=== PATIENT | female | born 1980 | race Caucasian/White ===

== ENCOUNTER → 2019-05-05 22:13 | Outpatient (CLI) | payer MEDICAID, SELFPAY ==
[2019-05-05 22:37] LABS: Absolute Neutrophil Count 5.4 X10^3/uL (2.0-7.7); Basophil# 0.05 X10^3/uL; Basophil% 0.5 % (0-1); Eosinophil# 0.09 X10^3/uL; Eosinophils% 0.9 % (0-5); Hematocrit 43.2 % (37-47); Hemoglobin 14.2 g/dL (12.0-15.0); Mean Corp Hgb Conc 32.9 g/dL (32-36); Mean Corpuscular Hgb 32.1 pg (27.0-32.0); Mean Corpuscular Volume 97.7 fL (81-99); Mean Platelet Vol. 11.2 fl (6.2-12.0); NRBC Flagged by Analyzer 0 % (0-5); Neutrophil # 5.44 X10^3/uL (2.7-7.7); Neutrophil % 54.4 % (47-70); Platelet Count 207 K/mm3 (150-450); RBC Distribution Width CV 12.7 % (11.6-14.6); RBC Distribution Width SD 45.5 fl (35.1-43.9); Red Blood Count 4.42 M/mm3 (4.2-5.4)
[2019-05-05 22:50] LABS: AST(SGOT) 13 U/L (15-37); Alanine Aminotransfer ALT/SGPT 22 U/L (13-56); Albumin, Serum 3.5 g/dL (3.2-5.0); Alkaline Phosphatase 41 U/L (45-117); Anion Gap 6 (5-15); BUN 18 mg/dL (7-18); BUN/Creat Ratio 24.3 RATIO (10-20); Calcium,Total 8.5 mg/dL (8.5-10.1); Chloride 110 mmol/L (98-107); Cholesterol 204 mg/dL (200); Creatinine, Serum 0.74 mg/dL (0.55-1.02); EST Glomerular Filtration Rate 92 mL/min (>60); Est Glom Filt Rate - Afr Amer 111 mL/min (>60); Globulin 3.6 g/dL (2.2-4.2); Glucose 77 mg/dL (74-106); High Density Lipoprotein 51 mg/dL; Potassium 4.1 mmol/L (3.5-5.1); Protein, Total 7.1 g/dL (6.4-8.2); Sodium Level 140 mmol/L (136-145); Triglycerides 76 mg/dL; Very Low Density Lipoprotein 15 mg/dL (5-40)
== END ==
PROVIDERS: Family Provider Nurse Practitioner; PCP Nurse Practitioner; Referring Provider Nurse Practitioner; Visit Provider Nurse Practitioner
DX: Z00.00 Encounter for general adult medical examination without abnormal findings (principal)
CPT/HCPCS: 80053; 80061; 85025

== ENCOUNTER → 2020-08-30 | Outpatient (CLI) | payer MEDICARE, MEDICAID, SELFPAY ==
[2014-04-01 11:28] VITALS: BMI 25.8
[2020-08-30 23:13] LABS: Absolute Neutrophil Count 4.4 X10^3/uL (2.0-7.7); Basophil# 0.05 X10^3/uL; Basophil% 0.6 % (0-1); Eosinophil# 0.06 X10^3/uL; Eosinophils% 0.7 % (0-5); Hematocrit 46.3 % (37-47); Hemoglobin 14.2 g/dL (12.0-15.0); Lymphocyte % 39.2 % (19-41); Mean Corp Hgb Conc 30.7 g/dL (32-36); Mean Corpuscular Hgb 31.1 pg (27.0-32.0); Mean Corpuscular Volume 101.5 fL (81-99); Mean Platelet Vol. 11.3 fl (6.2-12.0); Monocyte# 0.63 X10^3/uL; Monocyte% 7.5 % (0-10); NRBC Flagged by Analyzer 0 % (0-5); Neutrophil # 4.37 X10^3/uL (2.7-7.7); Neutrophil % 51.9 % (47-70); Platelet Count 194 K/mm3 (150-450); RBC Distribution Width CV 12.4 % (11.6-14.6); Red Blood Count 4.56 M/mm3 (4.2-5.4); White Blood Count 8.4 K/mm3 (4.4-11.0)
[2020-08-30 23:19] LABS: ALB/GLOB Ratio 1.1 RATIO (0.9-2.4); AST(SGOT) 13 U/L (15-37); Alanine Aminotransfer ALT/SGPT 25 U/L (13-56); Albumin, Serum 3.8 g/dL (3.2-5.0); Alkaline Phosphatase 52 U/L (45-117); Anion Gap 7 (5-15); BUN 19 mg/dL (7-18); BUN/Creat Ratio 17.8 RATIO (10-20); Calcium,Total 9.1 mg/dL (8.5-10.1); Chloride 110 mmol/L (98-107); Creatinine, Serum 1.07 mg/dL (0.55-1.02); EST Glomerular Filtration Rate 60 mL/min (>60); Est Glom Filt Rate - Afr Amer 72 mL/min (>60); Globulin 3.6 g/dL (2.2-4.2); Glucose 103 mg/dL (74-106); Potassium 4.6 mmol/L (3.5-5.1); Protein, Total 7.4 g/dL (6.4-8.2); Sodium Level 145 mmol/L (136-145)
[2020-09-03 06:15] LABS: Vitamin D 1,25-Dihydroxy 52.6 pg/mL (19.9-79.3)
== END | disposition home or self-care (01) ==
PROVIDERS: PCP Nurse Practitioner; Visit Provider Nurse Practitioner
DX: S06.9X9A Unspecified intracranial injury with loss of consciousness of unspecified duration, initial encounter (principal); X58.XXXA Exposure to other specified factors, initial encounter; Y93.9 Activity, unspecified; Y92.9 Unspecified place or not applicable; Y99.9 Unspecified external cause status; E55.9 Vitamin D deficiency, unspecified; F41.9 Anxiety disorder, unspecified
CPT/HCPCS: 80053; 82652; 85025

== ENCOUNTER → 2023-10-16 | Outpatient (CLI) | payer MEDICARE, MEDICAID, SELFPAY ==
--- OUTSIDE RECORDS SUMMARY | 2023-10-16 20:38 | XMS RPT_ITS | CCD ---
Author Name Unknown Address [address] [place] [address] Organization [facility] Care Team Providers Care Solid Fiber Paster Operator Name Role Phone Kristy Buchanan Primary Care Provider [phone] Andrés Hinds MD Primary Care Provider Berto WAN, Andrés Mathew Primary Care Provider ANDRÉS HINDS Attending Unavailab ANDRÉS Montesinos Primary Care UnavailANDRÉS Clark Attending Unavailab KRISTY Ramírez Primary Care Unavailable KRISTY KANG Attending Unavailable KRISTY KANG Admitting Unavailable KRISTY LANGSTON Referring Unavailable ANDRÉS HINDS Primary Care UnavailEKATERINA Edgar Consulting Unavailable KRISTY LANGSTON Attending Unavailable ANDRÉS HINDS Primary Care Unavailab flynn Allergies Allergy Classification Reported Allergen(s) Allergy Type Date of Onset Reaction(s) Facility (20 sources) Amoxicillin; Translations: [AMOXICILLIN] Drug Allergy 10-10-2019 Unknown [facility] (20 sources) lamoTRIgine; Translations: [LAMOTRIGINE] Drug Allergy 06-26-2022 Unknown [facility] Medications Current Medications Medication Drug Class(es) Dates Sig (Normalized) Sig (Original) dextromethorphan hydrobromide 15 mg oral capsule (2 sources) Uncompetitive [id number] te Receptor Antagonist, Sigma-1 Agonist Start: 06-25-2023 End: 06-24-2024 take 3 capsules by mouth twice daily Dextromethorphan HBr (TUSSIN COUGH) 15 mg cap Take 3 capsules by mouth two times a day. 540 capsule 3 06/25/2023 06/24/2024 Active Completed/Discontinued Medications Medication Drug Class(es) Dates Sig (Normalized) Sig (Original) 24 hr amphetamine aspartate 7.5 mg / amphetamine sulfate 7.5 mg / dextroamphetamine saccharate 7.5 mg / dextroamphetamine sulfate 7.5 mg extended release oral capsule (20 sources) Central Nervous System Stimulant Start: 06-26-2022 End: 09-23-2023 take 1 capsule by mouth once daily amphetamine-dextro amphetamine XR (ADDERALL XR) 30 mg capsule Indications: Attention-deficit hyperactivity disorder, combined type Take 1 capsule by mouth once daily for 30 days. 30 capsule 0 06/25/2023 Active Problems Active Problems Problem Classification Problem Date Documented Date Episodic/Chronic Attention-deficit, conduct, and disruptive behavior disorders (20 sources) Attention deficit hyperactivity disorder, combined type; Translations: [Attention-deficit hyperactivity disorder, combined type] Onset: 04-13-2017 06-18-2022 Chronic Attention-deficit, conduct, and disruptive behavior disorders (1 source) Attention-deficit hyperactivity disorder, combined type; Translations: [Attention-deficit hyperactivity disorder, combined type] Onset: 06-18-2022 Chronic Bacterial infection; unspecified site (1 source) Bacteremia; Translations: [Bacteremia] Onset: 10-05-2023 Episodic Calculus of urinary tract (2 sources) Calculus of kidney; Translations: [Calculus of ureter] Onset: 10-04-2023 Episodic Delirium, dementia, and amnestic and other cognitive disorders (20 sources) Pseudobulbar affect; Translations: [Pseudobulbar affect] Onset: 11-04-2020 06-18-2022 Chronic Mood disorders (19 sources) Depressive disorder; Translations: [Depression] Onset: 12-19-2021 06-18-2022 Chronic Paralysis (20 sources) Spastic hemiplegia of dominant side; Translations: [Spastic hemiplegia affecting unspecified side] Onset: 06-26-2002 06-18-2022 Chronic Past or Other Problems Problem Classification Problem Date Documented Date Episodic/Chronic Intracranial injury (20 sources) Contusion of cerebral cortex; Translations: [Diffuse traumatic brain injury with loss of consciousness of unspecified duration, initial encounter] Onset: 06-09-2002 06-18-2022 Episodic Mycoses (19 sources) Onychomycosis; Translations: [Tinea unguium] Onset: 05-01-2018 06-18-2022 Episodic Other screening for suspected conditions (not mental disorders or infectious disease) (9 sources) Patient encounter status; Translations: [Encounter for screening for lipoid disorders] Onset: 06-25-2023 Episodic Results Test Name Value Interpretation Reference Range Facil ity Vital Signs Date Time Vital Sign Value Performing Clinician Melissa jones 06-25-2023 08:59-0400 Body height 167.6 cm Andrés Hinds MD Work Phone: [facility] 06-25-2023 08:59-0400 Body temperature 97.3 [degF] Andrés Hinds MD Work Phone: [facility] 06-25-2023 08:59-0400 Body weight 71.58 kg Andrés Hinds MD Work Phone: [facility] 06-25-2023 08:59-0400 Diastolic blood pressure 78 mm[Hg] Andrés Hinds MD Work Phone: [facility] 06-25-2023 08:59-0400 Heart rate 72 /min Andrés Hinds MD Work Phone: [facility] 06-25-2023 08:59-0400 Respiratory rate 18 /min Andrés Hinds MD Work Phone: [facility] 06-25-2023 08:59-0400 SaO2% (BldA) [Mass fraction] 97 % Andrés Hinds MD Work Phone: [facility] 06-25-2023 08:59-0400 Systolic blood pressure 118 mm[Hg] Andrés Hinds MD Work Phone: [facility] 12-25-2022 10:33-0400 Body height 165.1 cm Andrés Hinds MD Work Phone: [facility] 12-25-2022 10:33-0400 Body temperature 97.3 [degF] Andrés Hinds MD Work Phone: [facility] 12-25-2022 10:33-0400 Body weight 75.75 kg Andrés Hinds MD Work Phone: [facility] 12-25-2022 10:33-0400 Diastolic blood pressure 72 mm[Hg] Andrés Hinds MD Work Phone: [facility] 12-25-2022 10:33-0400 Heart rate 72 /min Andrés Hinds MD Work Phone: [facility] 12-25-2022 10:33-0400 Respiratory rate 18 /min Andrés Hinds MD Work Phone: [facility] 12-25-2022 10:33-0400 SaO2% (BldA) [Mass fraction] 99 % Andrés Hinds MD Work Phone: [facility] 12-25-2022 10:33-0400 Systolic blood pressure 110 mm[Hg] Andrés Hinds MD Work Phone: [facility] 06-26-2022 10:14-0400 Body height 165.1 cm Andrés Hinds MD Work Phone: [facility] 06-26-2022 10:14-0400 Body temperature 97.9 [degF] Andrés Hinds MD Work Phone: [facility] 06-26-2022 10:140400 Body weight 74.03 kg Andrés Hinds MD Work Phone: [facility] 06-26-2022 10:14-0400 Diastolic blood pressure 74 mm[Hg] Andrés Hinds MD Work Phone: [facility] 06-26-2022 10:14-0400 Heart rate 72 /min Andrés Hinds MD Work Phone: [facility] 06-26-2022 10:14-0400 Respiratory rate 18 /min Andrés Hinds MD Work Phone: [facility] 06-26-2022 10:14-0400 SaO2% (BldA) [Mass fraction] 98 % Andrés Hinds MD Work Phone: [facility] 06-26-2022 10:14-0400 Systolic blood pressure 118 mm[Hg] Andrés Hinds MD Work Phone: [facility] 12-19-2021 15:03-0400 Body temperature 97.5 [degF] Christopher Stetler DO Work Phone: [facility] 12-19-2021 15:03-0400 Body weight 71.44 kg Christopher Stetler DO Work Phone: [facility] 12-19-2021 15:03-0400 Diastolic blood pressure 69 mm[Hg] Christopher Stetler DO Work Phone: [facility] 12-19-2021 15:03-0400 Heart rate 62 /min Christopher Stetler DO Work Phone: [facility] 12-19-2021 15:03-0400 Respiratory rate 14 /min Christopher Stetler DO Work Phone: [facility] 12-19-2021 15:03-0400 Systolic blood pressure 121 mm[Hg] [facility] Work [facility]: [facility] Encounters Encounter Date Encounter Type Care Provider Facility Start: 10-05-2023 End: 10-07-2023 Evaluation and management of inpatient HARVEYERNESTO KANG Facility:[facility] Start: 10-04-2023 End: 10-05-2023 [facility] Start: 08-14-2023 Patient encounter procedure [facility] Provider [facility] Department Start: 06-25-2023 End: 06-25-2023 ambulatory ANDRÉS HINDS Facility:[id number] Start: 06-25-2023 Encounter for genera l adult medical examination without abnormal findings ANDRÉS HINDS [facility] Start: 06-25-2023 End: 06-25-2023 Patient encounter status Andrés Hinds MD Work Phone: [facility] Work Phone: Start: 06-25-2023 End: 06-25-2023 Periodic preventive med est patient 40-64yrs Andrés Hinds MD Work Phone: [facility] [place] Plan of Treatment Date Care Activity Detail Author Start: 06-25-2023 End: 08-25-2023 CBC W Auto Differential panel - Blood CBC + DIFF Lab Routine Screening for deficiency anemia Expected: 06/25/2023, Expires: 08/25/2023 [facility] Work Phone: Immunizations Immunization Date Immunization Notes Care Provider [facility] 08-09-2021 influenza nasal, unspecified formulation Darieler Lawtler DO Work Phone: [facility] 08-09-2021 influenza virus vaccine, unspecified formulation [facility] Provider [facility] 08-13-2009 novel [id number], preservative-free, injectable Christjessicaer Lawtler DO Work Phone: [facility] Payers Date Payer Category Payer Medicare [id number] 2019 Medicaid [id number] 2019 Medicare [id number] Social History Date Type Detail Facility Start: 10-10-2019 End: 06-26-2022 Tobacco smoking status NHIS Never smoked tobacco [facility] Start: 10-10-2019 End: 06-26-2022 Tobacco use and exposure Smokeless tobacco non-user [facility] Start: 06-18-2022 End: 06-25-2023 Alcohol intake Lifetime non-drinker (finding) [facility] Start: 10-10-2019 End: 06-26-2022 History SDOH Alcohol Frequency 1 [facility] Start: 1980 Sex Assigned At Not on file [facility] Start: 06-26-2022 History SDOH Social Connections Phone 5 [facility] Start: 06-26-2022 History SDOH Social Connections Christian 3 [facility] Start: 06-26-2022 History SDOH Social Connections Membership 2 [facility] Start: 06-16-2022 End: 06-26-2022 Exposure to SARS-CoV-2 (event) Not sure [facility] Start: 06-26-2022 End: 06-25-2023 History of Social function [place] [facility] Start: 06-26-2022 End: 06-25-2023 Social connection and isolation panel [facility] Do you belong to any clubs or organizations such as mandaeism groups, unions, fraternal or athletic groups, or school groups? No [facility] Marital Status Not on file [place] [facility] How often to you hav e a drink containing alcohol? Never [facility] Do you feel stress - tense, restless, nervous, or anxious, or unable to sleep at night because your mind is troubled all the time - these days [OSQ] Not at all [facility] (I/We) worried wheth er (my/our) food would run out before (I/we) got money to buy more. Never true [facility] Clinical Notes 06-26-2022 to 10-07-2023 Andrés Hinds MD - 06/25/2023 9:30 AM EDTReBreanna kline LPN - 06/25/2023 8:52 AM EDTTelephone Encounter - Mireya Denis MA - 01/16/2023 8:26 AM EDT Note Date & Type Note Facility 10-07-2023 Note HNO ID: [id number] Author: BOAZ CASAS MD Service: Urology Author Type: Resident Type: Progress Notes Filed: 10/07/2023 10:28 Note Text: Attestation signed by Boaz Casas MD at 10/07/2023 10:28 AM 43 year old female with 1.5 cm right renal pelvis stone with hydronephrosis, sepsis secondary to E. coli UTI with bacteremia Status post right ureteral stent placement Hemodynamically improved Leukocytosis improving ID consulted, appreciate recs. Likely DC today pending ID recs. Planning for PCNL with Dr. Gasca after treatment of UTI Boaz Casas MD UROLOGY PROGRESS NOTE PATIENT NAME: Moira Moreno DATE OF : 1980 ADMISSION DATE: 10/04/2023 11:26 PM Subjective S/p right ureteral stent insertion. No acute events overnight No nausea, vomiting, fevers or chills overnight. Overall, feels well this AM Objective VS: BP 120/74 Pulse 67 Temp 36.4 ?C (97.6 ?F) (Oral) Resp 17 Ht 167.6 cm (5' 6 ) Wt 67.2 kg (148 lb 2.4 oz) SpO2 97% BMI 23.91 kg/m? I AND O - 24hr: Intake/Output Summary (Last 24 hours) at 10/07/2023 1003 Last data filed at 10/06/2023 2227 Gross per 24 hour Intake 1470 ml Output 1750 ml Net -280 ml Physical Exam: General: Neck: Resp: Abdomen: No acute distress Supple Normal effort Soft, non-tender, nondistended : No flank ttp Labs and Imaging Studies LABS: BMP: Glucose (mg/dL) Date Value 10/07/2023 90 03/26/2014 125 Potassium Date Value 10/07/2023 3.8 mmol/L 03/26/2014 3.5 mEq/L Sodium Date Value 10/07/2023 140 mmol/L 03/26/2014 136 mEq/L Chloride Date Value 10/07/2023 109 mmol/L 03/26/2014 101 mEq/L CO2 Date Value 10/07/2023 22 mmol/L 03/26/2014 28 mEq/L Creatinine (mg/dL) Date Value 10/07/2023 0.72 03/26/2014 0.67 BUN (mg/dL) Date Value 10/07/2023 10 03/26/2014 10 Anion Gap Date Value 10/07/2023 9 mmol/L 03/26/2014 10 Calcium (mg/dL) Date Value 03/26/2014 9.3 Calcium, Total (mg/dL) Date Value 10/07/2023 8.6 CBC: Hemoglobin (g/dL) Date Value 10/07/2023 12.3 Hematocrit (%) Date Value 10/07/2023 38.0 WBC (k/uL) Date Value 10/07/2023 8.33 Platelet Count (k/uL) Date Value 10/07/2023 125 Urinalysis: Specific [place], Ur Date Value Ref Range Status 10/04/2023 <=1.005 (L) 1.005 - 1.030 Final Glucose, Urine Date Value Ref Range Status 10/04/2023 Negative Negative Final Bilirubin, Urine Date Value Ref Range Status 10/04/2023 Negative Negative Final Ketones, Urine Date Value Ref Range Status 10/04/2023 Negative Negative Final Hemoglobin/Blood,Ur Date Value Ref Range Status 10/04/2023 2+ (A) Negative Final Protein, Urine Date Value Ref Range Status 10/04/2023 2+ (A) Negative Final Urobilinogen, Urine Date Value Ref Range Status 03/26/2014 0.2 0.0 - 1.0 EU/dL Final Nitrites Date Value Ref Range Status 10/04/2023 Negative Negative Final WBC, Urine Date Value Ref Range Status 10/04/2023 11-25 /HPF (A) 0-5 /HPF Final Urine Culture: No results found for: URCUL RADIOLOGY: Assessment and Plan Problem List Kidney stone (POA: Yes) Pyelonephritis (POA: Status not on file) Sepsis due to Escherichia coli without acute organ dysfunction (HCC) (POA: Status not on file) E coli bacteremia (POA: Status not on file) Bacteremia (POA: Yes) ASSESSMENT: 43 year old female with 1.5cm R renal pelvis stone with hydronephrosis. PLAN: - Maintain right ureteral stent - Daily cbc and bmp - Ucx and Bcx growing E coli. Awaiting blood sensitivities (urine sensitivities have resulted) - Infectious disease consult - likely DC on oral abx if their service agrees this is feasible today - IV abx, Ceftriaxone - likely switch to oral at DC per ID - Regular diet - Pain and nausea, control - Will undergo outpatient PCNL for her stones with Dr. Elo Osman MD Urology PGY3 10/07/2023 Page field operations manager resident with questions [facility] 10-06-2023 Note HNO ID: [id number] Author: BOAZ CASAS MD Service: Urology Author Type: Resident Type: Progress Notes Filed: 10/06/2023 11:59 Note Text: Attestation signed by Boaz Casas MD at 10/06/2023 11:59 AM I saw and evaluated the patient. Discussed with the resident and agree with resident's findings and plan as documented in the resident's note. 43 year old female with 1.5 cm right renal pelvis stone with hydronephrosis, sepsis secondary to E. coli UTI with bacteremia Status post right ureteral stent placement Hemodynamically improved Leukocytosis improving Given positive blood cultures will consult infectious disease Repeat blood cultures Planning for PCNL with Dr. Gasca after treatment of UTI Boaz Casas MD UROLOGY PROGRESS NOTE PATIENT NAME: Moira Moreno DATE OF : 1980 ADMISSION DATE: 10/04/2023 11:26 PM Subjective S/p right ureteral stent insertion. Tolerated procedure well. No nausea, vomiting, fevers or chills overnight. Blood cultures did return positive for gram negative bacilli. Objective VS: BP 108/67 Pulse 73 Temp 36.8 ?C (98.3 ?F) (Oral) Resp 18 Ht 167.6 cm (5' 6 ) Wt 67.2 kg (148 lb 2.4 oz) SpO2 94% BMI 23.91 kg/m? I AND O - 24hr: Intake/Output Summary (Last 24 hours) at 10/06/2023 0685 Last data filed at 10/06/2023 0552 Gross per 24 hour Intake 2000 ml Output 1800 ml Net 200 ml Physical Exam: General: Neck: Resp: Abdomen: No acute distress Supple Normal effort Soft, non-tender, nondistended : No flank ttp Labs and Imaging Studies LABS: BMP: Glucose (mg/dL) Date Value 10/06/2023 105 03/26/2014 125 Potassium Date Value 10/06/2023 Comment: Unable to assay due to interference from hemolysis. Suggest reorder as clinically indicated. 03/26/2014 3.5 mEq/L Sodium Date Value 10/06/2023 139 mmol/L 03/26/2014 136 mEq/L Chloride Date Value 10/06/2023 107 mmol/L 03/26/2014 101 mEq/L CO2 Date Value 10/06/2023 22 mmol/L 03/26/2014 28 mEq/L Creatinine (mg/dL) Date Value 10/06/2023 0.72 03/26/2014 0.67 BUN (mg/dL) Date Value 10/06/2023 14 03/26/2014 10 Anion Gap Date Value 10/06/2023 10 mmol/L 03/26/2014 10 Calcium (mg/dL) Date Value 03/26/2014 9.3 Calcium, Total (mg/dL) Date Value 10/06/2023 8.5 CBC: Hemoglobin (g/dL) Date Value 10/06/2023 12.5 Hematocrit (%) Date Value 10/06/2023 37.3 WBC (k/uL) Date Value 10/06/2023 13.08 Platelet Count (k/uL) Date Value 10/06/2023 121 Urinalysis: Specific [place], Ur Date Value Ref Range Status 10/04/2023 <=1.005 (L) 1.005 - 1.030 Final Glucose, Urine Date Value Ref Range Status 10/04/2023 Negative Negative Final Bilirubin, Urine Date Value Ref Range Status 10/04/2023 Negative Negative Final Ketones, Urine Date Value Ref Range Status 10/04/2023 Negative Negative Final Hemoglobin/Blood,Ur Date Value Ref Range Status 10/04/2023 2+ (A) Negative Final Protein, Urine Date Value Ref Range Status 10/04/2023 2+ (A) Negative Final Urobilinogen, Urine Date Value Ref Range Status 03/26/2014 0.2 0.0 - 1.0 EU/dL Final Nitrites Date Value Ref Range Status 10/04/2023 Negative Negative Final WBC, Urine Date Value Ref Range Status 10/04/2023 11-25 /HPF (A) 0-5 /HPF Final Urine Culture: No results found for: URCUL RADIOLOGY: Assessment and Plan Problem List Kidney stone (POA: Yes) ASSESSMENT: 43 year old female with 1.5cm R renal pelvis stone with hydronephrosis. PLAN: - POD1 right ureteral stent insertion - Tolerated procedure well - Will need outpatient follow up for definitive management of stone - WBC improved, 13(20), trend - Cr 0.72, WNL - Ucx in process, monitor - Bcx gram negative bacilli - Infectious disease consult - IV abx, Ceftriaxone - Regular diet - Pain and nausea, control Cosme Mishra MD Urology PGY-3 Pager #[phone] 10/06/2023 6:38 AM [facility] 10-06-2023 Note HNO ID: [id number] Author: NOTE, INTERFACE, ? Service: ? Author Type: ? Type: Progress Notes Filed: 10/06/2023 02:24 Note Text: Epic Scheduled Downtime: 10/06/2023 1:00:00 AM to 10/06/2023 2:04:22 AM [facility] 10-05-2023 Note HNO ID: [id number] Author: CHESTER SALES RN Service: Care Management Author Type: Registered Nurse Type: Care Mgt Initial Assessment Filed: 10/05/2023 15:26 Note Text: CARE MANAGEMENT: ASSESSMENT AND DISCHARGE PLAN SERVICE DATE: October 05, 2023 SERVICE TIME: 3:25 PM PCP: Andrés Hinds MD Primary Contact: Extended Emergency Contact Information Primary Emergency Contact: MORENOYOLI Relation: Father Secondary Emergency Contact: ARIEL MORENO Relation: Mother Admission Status: Observation Insurance Provider: [facility] MEDICARE Discharge Planning requested by: Per Department Practice Potential Transition Plans Home Advance Directives Current Advance Directive: Other Document: See Comment (guardianship) In Chart: No Current Living Arrangements and Support Lives with: Parent Type of Residence: Private Residence (House) Support: Family members, Parent How do you manage to accomplish the following: Independent: Ambulation;Going to the bathroom Needs Assistance: Bathe/Shower;Dress;Meals/Meal Prep;Medication Management;Transportation to appointments/community Current Services/Equipment Current Post-Acute Service(s): Private Duty Discharge Planning Patient Goal(s): Be able to go home, General wellness [place] Explained: [place] Given: No Reason Not Given: No placements necessary Are you interested in bedside delivery of your medications? No Discharge Planning Participant(s): Patient;Parents Patient/Family Comments: father Yoli at bedside Caregiver Assessment: Caregiver is ready, willing and able to meet the patient's needs as recommended by the inter-professional team: Yes Name of Caregiver: Yoli Moreno Transport at Discharge: Transportation Arrangements: Car Needs Prior to Discharge: Needs Prior to Discharge: None Post-Acute Discharge Plan: Chart reviewed and met with patient and her father in room. Patient is from home with her parents. Independent for ambulation, needs assistance with ADLs. +PCP, +RX, -DME. 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 DC plan is home, patient's mother or father to transport. No skilled needs identified for DC. SIGNATURE: Chester Sales RN PATIENT NAME: Moira Moreno DATE: October 05, 2023 TIME: 3:25 PM CONTACT #: [phone] [facility] 10-05-2023 Note HNO ID: [id number] Author: KANNAN GRIFFITH APRN.CRNA Service: Anesthesiology Author Type: Nurse Veterinarian Helper Type: Anesthesia Procedure Notes Filed: 10/05/2023 10:40 Note Text: ANESTHESIOLOGY PROCEDURE NOTE Airway General Information Procedure Start Time/Medication Administration: 10/05/2023 10:34 AM Patient location during procedure: OR Timeout Performed Pre-procedure: timeout performed Consent Obtained: Yes Patient identity confirmed: arm band Staffing Performed by: DIRECTOR MORTGAGE Indications and Patient Condition Indications for airway management: anesthesia Preoxygenated: yes anesthesia circuit Patient position: sniffing Method: asleep Airway Accessory: LMA Final Airway Details Final airway type: supraglottic airway Number of attempts at approach: 1 Final Supraglottic Airway: i-gel Size 3 Seal Adequate: yes Airway not difficult SIGNATURE: Kannan Griffith APRN.CRNA PATIENT NAME: Moira Moreno DATE: October 05, 2023 TIME: 10:40 AM CSN: [id number] [facility] 10-05-2023 Note HNO ID: [id number] Author: EFREN GASCA MD Service: Urology Author Type: Physician Type: Progress Notes Filed: 10/05/2023 09:55 Note Text: UROLOGY PROGRESS NOTE PATIENT NAME: Moira Moreno DATE OF : 1980 ADMISSION DATE: 10/04/2023 11:26 PM Subjective No acute events overnight. Doing ok this morning Father/guardian at bedside Discussed the procedure in detail Objective VS: BP 88/62 Pulse 89 Temp 37.2 ?C (99 ?F) (Oral) Resp 16 Ht 167.6 cm (5' 6 ) Wt 67.2 kg (148 lb 2.4 oz) SpO2 96% BMI 23.91 kg/m? I AND O - 24hr: Intake/Output Summary (Last 24 hours) at 10/05/2023 0722 Last data filed at 10/05/2023 0150 Gross per 24 hour Intake 100 ml Output 200 ml Net -100 ml Physical Exam: General: Neck: Resp: Abdomen: No acute distress, non-toxic appearing Supple Normal effort on room air Soft, non-tender, nondistended : No cva ttp Labs and Imaging Studies LABS: BMP: Glucose (mg/dL) Date Value 10/05/2023 106 03/26/2014 125 Potassium Date Value 10/05/2023 3.9 mmol/L 03/26/2014 3.5 mEq/L Sodium Date Value 10/05/2023 136 mmol/L 03/26/2014 136 mEq/L Chloride Date Value 10/05/2023 106 mmol/L 03/26/2014 101 mEq/L CO2 Date Value 10/05/2023 22 mmol/L 03/26/2014 28 mEq/L Creatinine (mg/dL) Date Value 10/05/2023 0.90 03/26/2014 0.67 BUN (mg/dL) Date Value 10/05/2023 14 03/26/2014 10 Anion Gap Date Value 10/05/2023 8 mmol/L 03/26/2014 10 Calcium (mg/dL) Date Value 03/26/2014 9.3 Calcium, Total (mg/dL) Date Value 10/05/2023 8.5 CBC: Hemoglobin (g/dL) Date Value 10/05/2023 12.8 Hematocrit (%) Date Value 10/05/2023 38.7 WBC (k/uL) Date Value 10/05/2023 26.05 Platelet Count (k/uL) Date Value 10/05/2023 138 Urinalysis: Specific [place], Ur Date Value Ref Range Status 10/04/2023 <=1.005 (L) 1.005 - 1.030 Final Glucose, Urine Date Value Ref Range Status 10/04/2023 Negative Negative Final Bilirubin, Urine Date Value Ref Range Status 10/04/2023 Negative Negative Final Ketones, Urine Date Value Ref Range Status 10/04/2023 Negative Negative Final Hemoglobin/Blood,Ur Date Value Ref Range Status 10/04/2023 2+ (A) Negative Final Protein, Urine Date Value Ref Range Status 10/04/2023 2+ (A) Negative Final Urobilinogen, Urine Date Value Ref Range Status 03/26/2014 0.2 0.0 - 1.0 EU/dL Final Nitrites Date Value Ref Range Status 10/04/2023 Negative Negative Final WBC, Urine Date Value Ref Range Status 10/04/2023 11-25 /HPF (A) 0-5 /HPF Final Urine Culture: No results found for: [facility] RADIOLOGY: Assessment and Plan Problem List Kidney stone (POA: Yes) ASSESSMENT: 43 year old female with a large right renal pelvis calculus and hydronephrosis with pain PLAN: - NPO - OR today for right ureteral stent placement - daily labs - UA positive - Urine culture pending - continue rocephin, will need abx upon discharge - will likely stay another night to monitor labs/vitals after stent placement - consent to be signed by father in pre-op area, r/b/a discussed this morning Martínez Otto MD Urology, PGY-5 October 05, 2023 7:22 AM Page field operations manager resident with questions I saw and evaluated the patient. Discussed with the resident and agree with resident's findings and plan as documented in the resident's note. Efren Gasca MD [facility] 06-25-2023 Note HNO ID: [id number] Author: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 / Procedures Referred By Ashwini t Referred To Contact [facility] Diagnoses Encounter for screening mammogram for malignant neoplasm of breast Procedures HARJIT SCREENING SCREENING MAMMOGRAPHY BI 2-VIEW BREAST INC CAD Andrés Hinds MD [address] [place] [address] [facility] [address] [place] [address] Referral ID Status Reason Start Date Expiration Date Visits Requested Visits Authorized [id number] Pending Review Auto-Generat ed Referral 06/25/2023 07/24/2024 1 1 [facility] Summary Purpose Family History No Family History Records FoundNo Family History Records FoundNo Family History Records Found Advance Directives No Advanced Directives Records FoundNo Advanced Directives Records FoundNo Advanced Directives Records Found Reason for Referral Specialty Diagnoses / Procedures Referred By Ashwini murillo Referred To Contact Andrés Hinds MD [address] [place] [address] Referral ID Status Reason Start Date Expiration Date V isits Requested Visits Authorized [id number] Pending Review 1 1 Additional Source Comments INFORMATION SOURCE (unrecogn ized section and content) DATE CREATED AUTHOR AUTHOR'S ORGANIZ ATION 10/08/[address] [facility] nter DATE CREATED AUTHOR AUTHOR'S ORGANIZ ATION 10/10/2023 [facility] Source Comments (unrecognize d section and content) In the event this informatio n is protected by the Federal Confidentiality of Alcohol and Drug Abuse Patient Records regulations: The Federal rules restrict any use of the information to criminally investigate or prosecute any alcohol or drug abuse patient.[facility] the event this information is protected by the Federal Confidentiality of Alcohol and Drug Abuse Patient Records regulations: The Federal rules restrict any use of the information to criminally investigate or prosecute any alcohol or drug abuse patient.[facility] the event this information is protected by the Federal Confidentiality of Alcohol and Drug Abuse Patient Records regulations: The Federal rules restrict any use of the information to criminally investigate or prosecute any alcohol or drug abuse patient.[facility] the event this information is protected by the Federal Confidentiality of Alcohol and Drug Abuse Patient Records regulations: The Federal rules restrict any use of the information to criminally investigate or prosecute any alcohol or drug abuse patient.[facility] the event this information is protected by the Federal Confidentiality of Alcohol and Drug Abuse Patient Records regulations: The Federal rules restrict any use of the information to criminally investigate or prosecute any alcohol or drug abuse patient.[facility] the event this information is protected by the Federal Confidentiality of Alcohol and Drug Abuse Patient Records regulations: The Federal rules restrict any use of the information to criminally investigate or prosecute any alcohol or drug abuse patient.[facility] the event this information is protected by the Federal Confidentiality of Alcohol and Drug Abuse Patient Records regulations: The Federal rules restrict any use of the information to criminally investigate or prosecute any alcohol or drug abuse patient.[facility] the event this information is protected by the Federal Confidentiality of Alcohol and Drug Abuse Patient Records regulations: The Federal rules restrict any use of the information to criminally investigate or prosecute any alcohol or drug abuse patient.[facility] the event this information is protected by the Federal Confidentiality of Alcohol and Drug Abuse Patient Records regulations: The Federal rules restrict any use of the information to criminally investigate or prosecute any alcohol or drug abuse patient.[facility] the event this information is protected by the Federal Confidentiality of Alcohol and Drug Abuse Patient Records regulations: The Federal rules restrict any use of the information to criminally investigate or prosecute any alcohol or drug abuse patient.[facility] the event this information is protected by the Federal Confidentiality of Alcohol and Drug Abuse Patient Records regulations: The Federal rules restrict any use of the information to criminally investigate or prosecute any alcohol or drug abuse patient.[facility] the event this information is protected by the Federal Confidentiality of Alcohol and Drug Abuse Patient Records regulations: The Federal rules restrict any use of the information to criminally investigate or prosecute any alcohol or drug abuse patient.[facility] the event this information is protected by the Federal Confidentiality of Alcohol and Drug Abuse Patient Records regulations: The Federal rules restrict any use of the information to criminally investigate or prosecute any alcohol or drug abuse patient.[facility] the event this information is protected by the Federal Confidentiality of Alcohol and Drug Abuse Patient Records regulations: The Federal rules restrict any use of the information to criminally investigate or prosecute any alcohol or drug abuse patient.[facility] the event this information is protected by the Federal Confidentiality of Alcohol and Drug Abuse Patient Records regulations: The Federal rules restrict any use of the information to criminally investigate or prosecute any alcohol or drug abuse patient.[facility] Hospital[facility] the event this information is protected by the Federal Confidentiality of Alcohol and Drug Abuse Patient Records regulations: The Federal rules restrict any use of the information to criminally investigate or prosecute any alcohol or drug abuse patient.[facility] the event this information is protected by the Federal Confidentiality of Alcohol and Drug Abuse Patient Records regulations: The Federal rules restrict any use of the information to criminally investigate or prosecute any alcohol or drug abuse patient.[facility] the event this information is protected by the Federal Confidentiality of Alcohol and Drug Abuse Patient Records regulations: The Federal rules restrict any use of the information to criminally investigate or prosecute any alcohol or drug abuse patient.[facility] Hospital[facility] the event this information is protected by the Federal Confidentiality of Alcohol and Drug Abuse Patient Records regulations: The Federal rules restrict any use of the information to criminally investigate or prosecute any alcohol or drug abuse patient.[facility] Care Teams (unrecognized sec tion and content) 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 Specialty Start Date End Date Kristy Buchanan PCP - General Family Medicine 07/25/11 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 Specialty Start Date End Date Kristy Buchanan PCP - General Family Medicine 07/25/11 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 Specialty Start Date End Date [place]cliff, rKisty Cleary PCP - General Family Medicine 07/25/11 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 Specialty Start Date End Date Surso, Kristy Cleary PCP - General Family Medicine 07/25/11 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 Specialty Start Date End Date Surso, Kristy Cleary PCP - General Family Medicine 07/25/11 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 Specialty Start Date End Date Surso, Kristy Cleary PCP - General Family Medicine 07/25/11 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 Specialty Start Date End Date Chanel, Kristy Cleary PCP - General Family Medicine 07/25/11 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 Specialty Start Date End Date Surso, Kristy Cleary PCP - General Family Medicine 07/25/11 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 Specialty Start Date End Date Surso, Kristy Cleary PCP - General Family Medicine 07/25/11 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 Specialty Start Date End Date Kristy Buchanan PCP - General Family Medicine 07/25/11 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 Specialty Start Date End Date Andrés Hinds MD [address] [place] [address] PCP - General Family Medicine 06/22/23 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 Specialty Start Date End Date Andrés Hinds MD [address] [place] [address] PCP - General Family Medicine 06/22/23 Reason for Visit (unrecogniz ed section and content) Reason Onset Date Comments Refill Request 10/20/2022 Reason Comments Medication Problem Nudexta prior auth a ppeal Reason Comments 6 Month Exam Reason Comments error Reason Comments Medicare Wellness Exam FOR RECORDS PERTAINING TO PATIENTS WHO ARE OR HAVE BEEN ENROLLED IN A CHEMICAL DEPENDENCY/SUBSTANCEABUSE PROGRAM, SOME INFORMATION MAY BE OMITTED. This clinical summary was aggregated from multiple sources. Caution should be exercised in using it in the provision of clinical care. This summary normalizes information from multiple sources, and as a consequence, information in this document may materially change the coding, format and clinical context of patient data. In addition, data may be omitted in some cases. CLINICAL DECISIONS SHOULD BE BASED ON THE PRIMARY CLINICAL RECORDS. [facility]. provides no warranty or guarantee of the accuracy or completeness of information in this document.
== END | disposition home or self-care (01) ==
PROVIDERS: PCP Nurse Practitioner; Referring Provider Nurse Practitioner; Visit Provider Nurse Practitioner
DX: N39.0 Urinary tract infection, site not specified (principal); A41.9 Sepsis, unspecified organism; N20.0 Calculus of kidney
CPT/HCPCS: 87086